=== PATIENT | male | born 1975 | race Hispanic/Latino ===

== ENCOUNTER 2019-02-17 05:59 | Day surgery (SDC) | payer MEDICAID ==
[2019-02-17] MEDS ORDERED: NACL 0.9% 1000 ML 1,000 ML IV SCH (07:00)
[2019-02-17] MEDS ORDERED: WATER FOR IRRIG STERILE IR ONE (07:25)
[2019-02-17] MEDS ORDERED: DIPRIVAN 10 MG/ML IV ONE (07:38)
[2019-02-17] MEDS ORDERED: PROVENTIL IH ONE ×2 (07:51→08:59)
--- NOTE | 2019-02-17 08:06 | Anesthesia Consultation ---
Anesthesia Consult and Med Hx Date of service: 02/17/19 - Airway Anesthetic Teeth Evaluation: Good, Poor ROM Head & Neck: Adequate Mental/Hyoid Distance: Adequate Mallampati Class: Class III Intubation Access Assessment: Possibly Difficult - Pulmonary Exam CTA: No (coarse BS; end-expiratory wheezing (albuteral neb x 1 ordered)) - Cardiac Exam Cardiac Exam: RRR - Pre-Operative Health Status ASA Pre-Surgery Classification: ASA3 Proposed Anesthetic Plan: MAC - Pulmonary Hx Smoking: Yes (4 cigarettes a day ) Hx Asthma: Yes Hx Respiratory Symptoms: Yes (cough and wheezing ) SOB: Yes COPD: Yes Hx Sleep Apnea: Yes (uses CPAP every night) - Cardiovascular System Hx Hypertension: Yes (took medication this morning ) Hx Coronary Artery Disease: No Hx Heart Attack/AMI: No - Central Nervous System Hx Neuromuscular Disorder: No Hx Back Pain: Yes - Gastrointestinal Hx Gastroesophageal Reflux Disease: Yes - Endocrine Hx Renal Disease: No Hx Liver Disease: No Hx Insulin Dependent Diabetes: No Hx Non-Insulin Dependent Diabetes: No Hx Thyroid Disease: No - Hematic Hx Anemia: No - Other Systems Hx Alcohol Use: No Hx Obesity: Yes - Additional Comments Anesthesia Medical History Comments: No GAC, No FHAC; wheezing resolved after al buteral neb tx
--- NOTE | 2019-02-17 08:06 | Anesthesia Day of Surgery ---
Anesthesia Day of Surgery - Day of Surgery Patient Examined: Yes Patient H&P Reviewed: Yes Patient is NPO: Yes Beta Blockers: No Cardiac Clearance: No Pulmonary Clearance: No
[2019-02-17] MEDS ORDERED: VERSED ONE (08:39)
--- NOTE | 2019-02-17 09:34 | Operative Report ---
PREOPERATIVE DIAGNOSIS: Morbid obesity. POSTOPERATIVE DIAGNOSIS: Normal esophagogastroduodenoscopy. PROCEDURE: Esophagogastroduodenoscopy. SPECIMENS: None. COMPLICATIONS: None. BLEEDING: None. INDICATIONS: The patient is a 43-year-old male with morbid obesity. He is here for his preoperative EGD in preparation for weight loss surgery. Informed consent was obtained. DESCRIPTION OF PROCEDURE: The patient was brought to the operating GI suite where he was placed in the left lateral decubitus position and underwent MAC anesthesia. A bite block was placed and a timeout was called. A standard adult gastroscope was inserted into the oropharynx down the esophagus into the stomach and first portion of the duodenum. On retroflexion view, he was noted to have no hiatal hernia. He does have some prominent gastric folds in the antrum, but no other abnormality. With this, the air was desufflated and the gastroscope was removed. The patient tolerated the procedure with no issues and was transferred to the PACU in stable condition. JOB# [id number] CHRISTIE/TWIN
[2019-02-17 09:46] VITALS: BP 97/52
== END 2019-02-17 06:00 | disposition home or self-care (01) ==
LOC: GIO 05:59
PROVIDERS: ATTEND Specialist
DX: K30 Functional dyspepsia (principal); K21.9 Gastro-esophageal reflux disease without esophagitis; E66.01 Morbid (severe) obesity due to excess calories; I10 Essential (primary) hypertension; J44.9 Chronic obstructive pulmonary disease, unspecified; F17.210 Nicotine dependence, cigarettes, uncomplicated; G47.30 Sleep apnea, unspecified; Z98.890 Other specified postprocedural states; Z68.43 Body mass index [BMI] 50.0-59.9, adult; Z79.899 Other long term (current) drug therapy
CPT/HCPCS: 43235; J2250; J2704; J7030